=== PATIENT | male | born 1955 | race Caucasian/White ===

== ENCOUNTER 2016-12-04 19:47 | Observation (INO) | payer BC ==
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
--- NOTE | ~2016-12-04 | DS ---
Discharge Summary [facility] [address] [facility] [place]. [address] NAME: RAMANDEEP ESTRADA : 55 STATUS : DIS Mook PAT#: [id number] AGE: 60 ADM/REG DATE : 12/04/16 MR#: [id number] REPORT SERV DATE: 12/05/16 DICTATED BY: JR. SANTILLAN WILLIAM JOHN DATE: 12/05/16 REPORT STATUS : Draft TRANSCRIBED BY: ROB DATE: 12/05/16 ADMISSION DATE: 12/04/2016 DISCHARGE DATE: 12/05/2016 DISCHARGE DIAGNOSES: Include: 1. New onset diabetes mellitus, hemoglobin A1c currently pending. 2. Acute kidney injury. 3. Intractable hiccups. OPERATIONS, PROCEDURES, AND TREATMENTS: Include diabetic education. DISCHARGE MEDICATIONS: Include: 1. Xanax 1 mg orally at bedtime. 2. Aspirin 81 mg orally daily. 3. Lipitor 20 mg orally daily. 4. Coreg 6.25 mg orally twice a day. 5. Cymbalta 60 mg orally daily. 6. Fenofibrate 160 mg orally daily. 7. Neurontin 1200 mg orally at bedtime. 8. Lisinopril 20 mg orally daily. 9. Meloxicam 15 mg orally daily. 10.Niacin 500 mg orally twice a day. 11.Bone Gap-3 fatty acid 1200 mg orally four times a day. 12.Omeprazole 20 mg orally daily. 13.OxyContin 30 mg twice a day as needed. 14.Percocet 10/325 every six hours as needed. 15.Robaxin 750 mg three times a day. 16.Lamisil 250 mg orally daily. 17.Metformin 500 mg orally twice a day. 18.Januvia 100 mg orally daily. HOSPITAL COURSE: The patient was a 60-year-old white male, who presented to the emergency room on 12/04/2016 with complaint of polyuria, polydipsia, dizziness, and evidence of new onset diabetes. The patient said that he had felt poorly like he "had the flu" for a few weeks with some nausea and vomiting, severe polydipsia. He had been drinking Aden-divya sugary drinks. Initial exam was remarkable for temperature 98.2, blood pressure 153/80, heart rate 85, and respiratory rate 16. Exam was benign. Initial laboratory showed a BUN of 37, creatinine is 1.6, and glucose 521. The patient admitted to the hospital for observation. He was placed on glipizide 5 mg in the morning with sliding scale. The patient was also seen by diabetic education instructions including a glucometer were provided. I discussed the case with Dr. Valadez's office. I talked with his partner for advice. We agreed to start the patient on metformin 500 b.i.d. as well as Januvia 100 daily. I will have the patient follow up within the next week for further refinement at his glycemic control. For discharge exam and laboratory, please see daily progress note. Discharge Summary [place] [id number] [facility] [place]. [address] NAME: RAMANDEEP ESTRADA : 55 STATUS : DIS Mook PAT#: [id number] AGE: 60 ADM/REG DATE : 12/04/16 MR#: [id number] REPORT SERV DATE: 12/05/16 DICTATED BY: JR. SANTILLAN WILLIAM JOHN DATE: 12/05/16 REPORT STATUS : Draft TRANSCRIBED BY: ROB DATE: 12/05/16 DISCHARGED DIET: ADA. ACTIVITY: As tolerated. WAngelineF/ROB Александр Santillan Jr, MD / [id number] CC: Александр Santillan Jr, MD Kent Grotefendt, M.D.
[2016-12-04 18:21] LABS: BASOPHILS 0.6 %; BASOPHILS ABSOLUTE 0.06 10/3/uL (0.0-0.16); EOSINOPHILS 3.3 %; EOSINOPHILS ABSOLUTE 0.36 10/3/uL (0.0-0.53); HEMATOCRIT 45.1 % (40.0-51.0); HEMOGLOBIN 15.6 g/dL (13.6-17.8); IMMATURE GRANULOCYTES 0.4 %; IMMATURE GRANULOCYTES ABSOLUTE 0.04 10/3/uL (0.0-0.11); LYMPHOCYTES ABSOLUTE 2.71 10/3/uL (0.67-4.30); MEAN CORPUS HGB CONC 34.6 g/dL (32.0-36.0); MEAN CORPUSCULAR HEMOGLOB 31.9 pg (26.0-34.0); MEAN CORPUSCULAR VOLUME 92.2 fL (80-100); MEAN PLATELET VOLUME 11.1 fL (9.2-13.0); MONOCYTES 6.5 %; NEUTROPHILS 64.2 %; NEUTROPHILS ABSOLUTE 6.97 10/3/uL (2.02-8.40); PLATELET COUNT 264 10/3/uL (150-400); RBC DISTRIBUTION WIDTH 12.5 % (12.0-16.0); RED CELL COUNT 4.89 10/6/uL (4.7-6.1); WHITE BLOOD CELLS 10.8 10/3/uL (4.5-10.5)
[2016-12-04 18:23] LABS: ER CBC TAT 0 Hrs 06 MinsNP; MANUAL DIFF NO %
[2016-12-04 18:25] LABS: ASCORBIC ACID (UR NOT ORDER) NEG (NEG); BILIRUBIN, URINE NEGATIVE (NEG); ER URINALYSIS TAT 0 Hrs 14 Mins; KETONE, URINE 20 MG/DL (NEG); LEUKOCYTE ESTERASE(NOT OR NEG (NEG); NITRITE (URINE) NEG (NEG); WBC (NOT ORDERED) (RFLEX) < 1 (0-5)
[2016-12-04 18:28] LABS: PARTIAL THROMBO TIME 28.9 SEC (22.5-37.2)
[2016-12-04 18:29] LABS: PROTIME (NOT ORD) 13.1 SEC (12.0-14.5)
[2016-12-04 18:30] LABS: ACETONE MODERATE
[2016-12-04 18:37] LABS: CALCIUM, SERUM 8.8 MG/DL (8.5-10.4); CHEST PAIN PROFILE TAT 0 Hrs 22 Mins; CO2 (CARBON DIOXIDE) 26 MMOL/L (24-34); CREATININE 1.66 MG/DL (0.70-1.30); GFR AFRICAN AMERICAN 51 ML/MIN (>=60); GFR NON AFRICAN AMERICAN 44 ML/MIN (>=60); POTASSIUM, SERUM 4.9 MMOL/L (3.5-5.3); SGPT(ALT) 24 U/L (5-65); SODIUM, SERUM 134 MMOL/L (135-148); TOTAL BILIRUBIN 0.5 MG/DL (0-1.2); TOTAL PROTEIN 6.9 G/DL (6.0-8.5); TROPONIN I <0.02 NG/ML (<0.05)
[2016-12-04 18:38] LABS: ALBUMIN 3.1 G/DL (3.5-5.0); ALKALINE PHOSPHATASE 81 U/L (45-117); BUN (BLOOD UREA NITROGEN) 37 MG/DL (6-23); CHLORIDE, SERUM 92 MMOL/L (96-112); DIRECT BILIRUBIN < 0.1 MG/DL (0.0-0.4); GLUCOSE, SERUM 521 MG/DL (60-99); INDIRECT BILIRUBIN(NOT ORDER) 0.4 MG/DL (0.1-0.9); SGOT(AST) 13 U/L (5-40)
[~2016-12-04 19:47] MED LIST: ALLEGRA180 PO; FISH OIL1200 MG PO; HALF81 PO; MUSCLE RELAXER; NIASPAN500 PO; PERCOCET1 TA4 PO; X25 PO
[2016-12-04] MEDS ORDERED: XANAX1 MG PO (20:47)
[2016-12-04] MEDS ORDERED: LIPITOR20 PO (20:49)
[2016-12-04] MEDS ORDERED: ARIMIDEX1 PO (20:49)
[2016-12-04] MEDS ORDERED: CYMBALTA60 PO (20:50)
[2016-12-04] MEDS ORDERED: COREG6 PO (20:50)
[2016-12-04] MEDS ORDERED: NEUR600 PO (20:51)
[2016-12-04] MEDS ORDERED: LOFIBRA160 MG PO (20:51)
[2016-12-04] MEDS ORDERED: MOBIC15 MG PO (20:52)
[2016-12-04] MEDS ORDERED: KLOR-CON M1010 MEQ PO (20:52)
[2016-12-04] MEDS ORDERED: PRIN20 PO (20:52)
[2016-12-04] MEDS ORDERED: FISH OIL1200 MG PO (20:53)
[2016-12-04] MEDS ORDERED: ASAB PO (20:53)
[2016-12-04] MEDS ORDERED: AFRIN15 NAS (20:54)
[2016-12-04] MEDS ORDERED: OXYCONTIN30 MG PO (21:03)
[2016-12-04] MEDS ORDERED: PERCOCET 10/3251 TAB PO (21:05)
[2016-12-04] MEDS ORDERED: M-CLEAR WC PO (21:05)
[2016-12-04] MEDS ORDERED: NIASPAN500 PO (21:12)
[2016-12-04] MEDS ORDERED: METHOC750B PO (21:12)
[2016-12-04] MEDS ORDERED: LAM250 PO (21:13)
[2016-12-04] MEDS ORDERED: PRILO PO (21:13)
[2016-12-04] MEDS ORDERED: TESTOSTERONE IMPLANT (21:14)
[2016-12-05 04:15] LABS: BASOPHILS 0.5 %; BASOPHILS ABSOLUTE 0.04 10/3/uL (0.0-0.16); EOSINOPHILS 4.7 %; EOSINOPHILS ABSOLUTE 0.36 10/3/uL (0.0-0.53); HEMOGLOBIN 13.5 g/dL (13.6-17.8); IMMATURE GRANULOCYTES 0.3 %; IMMATURE GRANULOCYTES ABSOLUTE 0.02 10/3/uL (0.0-0.11); LYMPHOCYTES 33.4 %; LYMPHOCYTES ABSOLUTE 2.54 10/3/uL (0.67-4.30); MEAN CORPUS HGB CONC 34.1 g/dL (32.0-36.0); MEAN CORPUSCULAR HEMOGLOB 31.4 pg (26.0-34.0); MEAN CORPUSCULAR VOLUME 92.1 fL (80-100); MEAN PLATELET VOLUME 10.4 fL (9.2-13.0); MONOCYTES 6.1 %; MONOCYTES ABSOLUTE 0.46 10/3/uL (0.21-1.20); NEUTROPHILS ABSOLUTE 4.18 10/3/uL (2.02-8.40); PLATELET COUNT 214 10/3/uL (150-400); RBC DISTRIBUTION WIDTH 12.6 % (12.0-16.0); WHITE BLOOD CELLS 7.6 10/3/uL (4.5-10.5)
[2016-12-05 04:19] LABS: HEMATOCRIT 39.6 % (40.0-51.0); MANUAL DIFF NO %
[2016-12-05 04:20] LABS: INTERNATIONAL NORMAL RATI 1.1 UNITS (-); PROTIME (NOT ORD) 13.8 SEC (12.0-14.5)
[2016-12-05 04:21] LABS: PARTIAL THROMBO TIME 35.5 SEC (22.5-37.2)
[2016-12-05 04:51] LABS: A/G RATIO 0.8 (0.7-1.9); ALBUMIN 2.6 G/DL (3.5-5.0); CALCIUM, SERUM 8.2 MG/DL (8.5-10.4); CHLORIDE, SERUM 101 MMOL/L (96-112); CO2 (CARBON DIOXIDE) 25 MMOL/L (24-34); CREATININE 1.26 MG/DL (0.70-1.30); GFR AFRICAN AMERICAN 71 ML/MIN (>=60); GFR NON AFRICAN AMERICAN 62 ML/MIN (>=60); GLOBULIN 3.2 G/DL (2.5-4.1); SGOT(AST) 13 U/L (5-40); SGPT(ALT) 21 U/L (5-65); SODIUM, SERUM 140 MMOL/L (135-148); TOTAL BILIRUBIN 0.3 MG/DL (0-1.2); TOTAL PROTEIN 5.8 G/DL (6.0-8.5)
[2016-12-05 04:53] LABS: ALKALINE PHOSPHATASE 63 U/L (45-117); BUN (BLOOD UREA NITROGEN) 29 MG/DL (6-23); GLUCOSE, SERUM 284 MG/DL (60-99); POTASSIUM, SERUM 3.9 MMOL/L (3.5-5.3); ULTRASENSITIVE TSH 0.777 MCIU/ML (0.358-3.740)
[2016-12-05] MEDS ORDERED: GLUCPH PO (16:07)
[2016-12-05] MEDS ORDERED: JANUVIA100 MG PO (16:08)
== END 2016-12-05 17:23 | disposition home or self-care (01) ==
LOC: ER 19:47 → CDU1 19:53 → CDU2 21:14
PROVIDERS: Emergency Medicine; Hospitalist
DX: E11.9 Type 2 diabetes mellitus without complications (principal); I10 Essential (primary) hypertension; N17.9 Acute kidney failure, unspecified; R06.6 Hiccough; K21.9 Gastro-esophageal reflux disease without esophagitis; E78.00 Pure hypercholesterolemia, unspecified; F41.9 Anxiety disorder, unspecified; F17.210 Nicotine dependence, cigarettes, uncomplicated; Z79.82 Long term (current) use of aspirin; Z79.01 Long term (current) use of anticoagulants; Z79.899 Other long term (current) drug therapy
CPT/HCPCS: 80048; 80053; 80076; 81001; 82009; 82962; 83735; 84443; 84484; 85025; 85610; 85730; 96372; 96374; 99285; A9270-GY; G0378